=== PATIENT | male | born 1970 | race African-American/Black ===

== ENCOUNTER 2017-08-03 01:37 | Emergency (ER) | payer SELFPAY ==
[~2017-08-03] VITALS: Ht 198.1 cm; Wt 108.9 kg
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
[2017-08-03] MEDS ORDERED: IBUPROFEN 400 MG TABLET ONE (01:51)
--- NOTE | 2017-08-03 01:55 | NUR ---
RADIOLOGY AT BEDSIDE FOR XRAY
[2017-08-03] MEDS ORDERED: IBUPROFEN 400 MG TABLET PO ONE (02:00)
--- NOTE | 2017-08-03 02:45 | NUR ---
Patient discharged to home in stable condition. Written and verbal after care instructions given. Patient verbalizes understanding of instruction. ambulatory with a steady gait. instructed pt not to drive. pt verbalize understanding. accompanied by family
[2017-08-03 02:46] VITALS: BP 148/98
== END 2017-08-03 02:47 | disposition home or self-care (01) ==
LOC: ER 01:38
DX: S20.211A Contusion of right front wall of thorax, initial encounter (principal); S90.01XA Contusion of right ankle, initial encounter; S80.02XA Contusion of left knee, initial encounter; V43.52XA Car driver injured in collision with other type car in traffic accident, initial encounter; Y93.89 Activity, other specified; Y92.488 Other paved roadways as the place of occurrence of the external cause; Y99.8 Other external cause status
CPT/HCPCS: 71010-TC; 73564-TC; 73610-TC; A4606; Z7610